=== PATIENT | female | born 2000 | race Hispanic/Latino ===

== ENCOUNTER 2019-03-25 20:45 | Emergency (ER) | payer OTHER ==
[2019-03-25] MEDS ORDERED: FAMOTIDINE 20MG TAB 20 MG TAB ONE (21:12)
[2019-03-25] MEDS ORDERED: DIPHENHYDRAMINE HCL 25 MG CAPSULE ONE ×2 (21:13→23:22)
[2019-03-25] MEDS ORDERED: METHYLPREDNISOLONE SOD SUCC 125MG/2ML VIAL ONE (23:22)
== END 2019-03-25 23:28 | disposition home or self-care (01) ==
LOC: EDH 20:45
DX: L50.9 Urticaria, unspecified (principal); Z87.891 Personal history of nicotine dependence
CPT/HCPCS: 81025; 96372; 99284; J2930; Q0163 ×2